=== PATIENT | male | born 1990 | race Caucasian/White ===

== ENCOUNTER 2017-09-11 10:50 | Emergency (ER) | payer BC ==
--- NOTE | 2017-09-11 11:19 | ED ---
ENT HPI - General Chief complaint: ENT Stated complaint: Neck swollen Time Seen by Provider: 09/11/17 10:56 Source: patient Mode of arrival: ambulatory - History of Present Illness Initial comments: 27 year old male presents to emergency center for swollen left side of neck, likely submandibular gland, x 36 hours. Patient states it has been getting progressively more swollen and tender since then. Patient also has swollen, erythematous duct under tongue on the left side. Patient states he has had a fever on and off at night for the past two nights, which has been as high as 101. 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 He has also been using sour candies to try to alleviate the possible blockage of the duct. He is insistent on knowing whether he has a stone. He states the pain is especially worse when he is trying to eat food. - Related Data Home Medications Medication Instructions Recorded Confirmed Acetaminophen Tab [Tylenol Tab] 1,000 mg PO Q6HR PRN 09/11/17 09/11/17 Clindamycin HCl 300 mg PO Q6H 09/11/17 09/11/17 Allergies Allergy/AdvReac Type Severity Reaction Status Date / Time codeine Allergy Rash/Hives Verified 09/11/17 11:04 Review of Systems ROS Statement: Those systems with pertinent positive or pertinent negative responses have been documented in the HPI. ROS Other: All systems not noted in ROS Statement are negative. Past Medical History Past Medical History: No Reported History History of Any Multi-Drug Resistant Organisms: None Reported Past Surgical History: Tonsillectomy Past Psychological History: No Psychological Hx Reported Smoking Status: Never smoker Past Alcohol Use History: Daily Past Drug Use History: None Reported General Exam Limitations: no limitations General appearance: alert, in no apparent distress Head exam: Present: atraumatic, normocephalic, normal inspection Eye exam: Present: normal appearance, PERRL, EOMI. Absent: scleral icterus, conjunctival injection, periorbital swelling ENT exam: Present: normal oropharynx, mucous membranes moist, TM's normal bilaterally, other (erythematous swollen left whartons duct) Neck exam: Present: tenderness (tenderness of left submandibular gland), lymphadenopathy (swollen left submandibular gland) Course Vital Signs 09/11/17 10:51 Temperature 97.2 F L Pulse Rate 44 L Respiratory 18 Rate Blood Pressure 135/79 O2 Sat by Pulse 99 Oximetry Medical Decision Making - Medical Decision Making 27 year old male presents with swollen left submandibular gland and Whartons duct. Appears generally comfortabe. Fevers on and off for the past 36 hours. 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 Dr. Montemayor called Dr. Ruiz who advised to add augmentin and steroids, but not to do any imaging because there is nothing to do with the stone. Patient states he does not need to scripts written for him because he will write them himself. Disposition Clinical Impression: Sialadenitis Disposition: HOME SELF-CARE Instructions: Sialoadenitis (ED) Additional Instructions: Return to ER if symptoms worsen or do not improve Referrals: None,Stated [Primary Care Provider] - 1-2 days Time of Disposition: 11:50
[2017-09-11 11:58] VITALS: BP 140/78; PULSE 40; RESP 16; TEMP 97.8
== END 2017-09-11 12:04 | disposition home or self-care (01) ==
LOC: EC 10:50
DX: K11.20 Sialoadenitis, unspecified (principal); Z88.5 Allergy status to narcotic agent
CPT/HCPCS: 99282